=== PATIENT | female | born 1965 | race African-American/Black ===

== ENCOUNTER 2021-06-09 11:39 | Emergency (ER) | payer OTHER ==
[~2021-06-09] VITALS: Ht 167.6 cm; Wt 84.0 kg
[2021-06-09] MEDS ORDERED: KETOROLAC 30MG/ML VIAL IV STA (14:17)
[2021-06-09] MEDS ORDERED: SODIUM CHLORIDE 0.9% 1,000 ML IV ONE (14:30)
[2021-06-09] MEDS ORDERED: METHOCARBAMOL 500MG TABLET PO ONE (14:30)
[2021-06-09 16:17] LABS: CHLORIDE 107 mEq/L (98-107)
[2021-06-09 16:18] LABS: BASOPHILS % 1.4 % (0.0-2.0); EOSINOPHILS % 3.1 % (0.0-5.0); HEMATOCRIT. 41.3 % (36.0-48.0); HEMOGLOBIN. 13.5 g/dL (12.0-16.0); LYMPHOCYTES % 33.9 % (20.0-50.0); MEAN CORPUSCULAR HEMOGLOBIN 28.6 pg (28.0-32.0); MEAN CORPUSCULAR VOLUME 87.3 fL (81.0-99.0); MEAN PLATELET VOLUME 8.9 fl (7.4-10.4); MONOCYTES % 7.2 % (2.0-8.0); NEUTROPHILS % 54.4 % (40.0-76.0); PLATELET 217 x1000/uL (130-400); RED BLOOD CELL COUNT 4.73 mill/uL (4.2-5.4)
[2021-06-09 16:24] LABS: CLARITY URINE CLEAR (CLEAR); COLOR URINE DARK YELLOW (YELLOW); KETONES URINE TRACE (NEGATIVE); LEUKOCYTE ESTERASE URINE NEGATIVE (NEGATIVE); NITRITE URINE NEGATIVE (NEGATIVE); OCCULT BLOOD URINE NEGATIVE (NEGATIVE); PH URINE 6.5 (4.5-8.0); PROTEIN URINE TRACE (NEGATIVE); SPECIFIC GRAVITY URINE 1.036 (1.005-1.030)
[2021-06-09] MEDS ORDERED: ACETAMINOPHEN 325MG TABLET PO ONE (16:45)
[2021-06-09] MEDS ORDERED: KETOROLAC 60MG/2ML VIAL IM ONE (16:45)
[2021-06-09] MEDS ORDERED: LIDO1ADH5 TP (18:17)
[2021-06-09] MEDS ORDERED: METH-773 MT (18:18)
[2021-06-09 18:30] VITALS: BP 130/83
[2021-06-10] MEDS ORDERED: LIDOCAINE 5% PATCH TOP SCH (09:00)
== END 2021-06-09 18:32 | disposition home or self-care (01) ==
LOC: ER 12:04
DX: M54.9 Dorsalgia, unspecified (principal); R10.9 Unspecified abdominal pain; E03.9 Hypothyroidism, unspecified; Z88.2 Allergy status to sulfonamides; Z88.6 Allergy status to analgesic agent; Z88.8 Allergy status to other drugs, medicaments and biological substances; Z98.82 Breast implant status; Z90.710 Acquired absence of both cervix and uterus
CPT/HCPCS: 36415; 71045; 74176; 76700; 80053; 80076; 81003; 83605; 83690; 84484; 85025; 99285; J1885; J7030